=== PATIENT | female | born 1950 | race Caucasian/White ===

== ENCOUNTER → 2016-10-01 | Outpatient (CLI) | payer OTHER, BC ==
--- NOTE | 2016-10-01 16:00 | DX ---
PA and lateral chest. October 01, 2016. Clinical History: Chest pain Comparison Study: None available. Findings: The lungs are clear. No pleural disease identified. Heart size is normal. Visualized osseous structures appear normal. Impression: Normal chest.
== END ==
LOC: FIMAGING 14:11
PROVIDERS: ATTEND Internal Medicine
DX: R07.89 Other chest pain (principal)